=== PATIENT | female | born 1965 | race Caucasian/White ===

== ENCOUNTER 2018-09-11 21:52 | Emergency (ER) | payer BC ==
[~2018-09-11] VITALS: Ht 170.2 cm; Wt 101.2 kg
[2018-09-11 22:09] VITALS: BP_SYST 155
[2018-09-12 01:25] VITALS: BP_SYST 140
== END 2018-09-12 01:25 | disposition home or self-care (01) ==
LOC: SED 21:52
DX: S93.402A Sprain of unspecified ligament of left ankle, initial encounter (principal); S80.212A Abrasion, left knee, initial encounter; Y99.8 Other external cause status; X50.1XXA Overexertion from prolonged static or awkward postures, initial encounter; Y93.01 Activity, walking, marching and hiking; Y92.89 Other specified places as the place of occurrence of the external cause; R03.0 Elevated blood-pressure reading, without diagnosis of hypertension
CPT/HCPCS: 99283